=== PATIENT | female | born 1985 | race Caucasian/White ===

== ENCOUNTER 2023-08-12 10:17 | Emergency (ER) | payer OTHER, SELFPAY ==
--- NOTE | 2023-08-12 11:34 | ED.GENMED ---
History of Present Illness
General
Chief Complaint: Cold/Flu/URI Symptoms
Source: patient
Exam Limitations: none
Time Seen by Provider: 08/12/23 11:15
Nursing documentation reviewed up to this point in time: agreed with
Travel History
Have you had any contact with someone who has COVID-19?: No
Do you have any symptoms of coronavirus? Fever > 100 degrees, chills, cough, shortness of breath, sore throat, loss of taste or smell, muscle aches, or headache?: Yes
Symptoms:: cough fever, general body aches
History of Present Illness
History of Present Illness:
38-year-old female presents to the ER complaining of several days of cough congestion and fevers. Son and have same symptoms. She is not flu vaccinated. Denies any shortness of breath nausea vomiting. Denies any sore throat shortness
of breath nausea vomiting diarrhea. Patient family speak Chinese language line used.
Review of Systems
Review of Systems
Allergies reviewed?: Yes
All Other Systems: ROS reviewed and negative except as documented in HPI and ROS
Constitutional: Reports fever and chills
EENT: Reports no symptoms; Denies sore throat
Respiratory: Reports cough; Denies trouble breathing
Cardiac: Reports no symptoms
ABD/GI: Reports no symptoms; Denies abdominal pain, nausea or vomiting
: Reports no symptoms
Musculoskeletal: Reports no symptoms
Skin: Reports no symptoms; Denies rash
Neurological: Reports no symptoms
Hematologic/Lymphatic: Reports no symptoms
Psychiatric: Reports no symptoms
Phy Exam
General Physical Exam
General Presentation: no apparent distress
General age: appears stated age
General Skin: warm and dry
General Habitus: normal
General Mental: alert
General Hydration: appears well hydrated
Cardiovascular Exam
Cardiovascular Exam: regular rate/rhythm, no murmur and normal peripheral pulses
Pulmonary Exam
Pulmonary Exam: lungs clear and no respiratory distress
Neurological Exam
Neurological Exam: alert and oriented x3
Musculoskeletal Exam
Musculoskeletal Exam: full ROM
Skin Exam
Skin Exam: normal color and warm/dry
Psychiatric Exam
Psychiatric Exam: normal mood/affect
Course
Orders/Labs/Results
Orders:
Orders
08/12/23 11:24
COVID-19 Antigen Urgent
Source: Nasal Swab
Influenza A+B Rapid Molecular Urgent
ZACK Source: Nasal Swab
Specimen Description:
Vital Signs
Initial and Last Documented VS:
Initial Vital Signs
Temp Pulse Resp Pulse Ox
99.5 F 102 16 97
08/12/23 10:53 08/12/23 10:53 08/12/23 10:53 08/12/23 10:53
Last Documented Vital Signs
Temp Pulse Resp BP Pulse Ox
100.3 F 99 17 114/85 97
08/12/23 12:49 08/12/23 12:49 08/12/23 12:49 08/12/23 12:49 08/12/23 12:49
MDM/Problems Addressed
Differential Diagnosis Includes:
Not limited to viral syndrome COVID influenza
MDM/Problems Addressed:
Patient is positive for influenza family is here with same also all positive. Patient no acute distress will DC with supportive care.
*Pulse Oximetry
Patient hypoxic: no
*Critical Care Note
Total Time (30-74mins, 75-104mins- exclusive of procedures): Not Applicable
ED Attending Note
-
Portions of this chart may have been created with voice recognition software.� Occasional wrong word or��sound alike� substitutions may have occurred due to the inherent limitations of voice recognition software.
Discharge Plan
Departure
Patient Disposition: Home (Routine Discharge)
Date of Disposition: 08/12/23
Time of Disposition: 12:59
Patient with high blood pressure during this ER visit?: No
Condition: Fair
Covid-19: Negative COVID-19
Discharge Problem:
Influenza
Instructions: Flu, Adult (DC), Fever, Adult (DC)
Referrals:
Deonna Tavera MD [Family Provider] -
Activity Restrictions/Additional Instructions:
Stay well-hydrated you may alternate Tylenol/ ibuprofen for fever chills body aches. Get plenty of rest. Follow-up with family doctor the next several days return if any worsening of symptoms.
Interventions
Interventions:
*Risk Screen - Suicide Last Done: 08/12/23 11:05
*General Assessment Last Done: 08/12/23 11:05
*Neglect/Abuse Screening Last Done: 08/12/23 11:05
ED- Fall Risk Assessment Last Done: 08/12/23 11:05
*ED COVID-19 Vaccine History Last Done: 08/12/23 11:05
*Nursing Disposition Last Done: 08/12/23 13:29
ED- Pulmonary Assessment Last Done: 08/12/23 11:05
Discharge Date and Time
Discharge Date/Time: 08/12/23 13:34
[2023-08-12 11:53] LABS: COVID-19 Antigen Negative (Negative)
[2023-08-12 12:49] VITALS: BP 114/85
== END 2023-08-12 13:34 | disposition home or self-care (01) ==
LOC: EMR 10:17
PROVIDERS: Nurse Practitioner; EMERGENCY PHYSICIAN Emergency Medicine; FAMILY PHYSICIAN Family Medicine
DX: J11.1 Influenza due to unidentified influenza virus with other respiratory manifestations (principal)
CPT/HCPCS: 99282; 87502; 87811